=== PATIENT | female | born 1995 | race Caucasian/White ===

== ENCOUNTER 2016-11-07 08:23 | Emergency (ER) | payer BC ==
[~2016-11-07] VITALS: Ht 167.6 cm; Wt 63.5 kg
[~2016-11-07 08:23] MED LIST: TRAM50TA PO
[2016-11-07] MEDS ORDERED: MORPHINE SULFATE 2 MG/ML DISP.SYRIN. IV ONE ×2 (09:00→10:00)
--- NOTE | 2016-11-07 09:00 | PHYS DOC ---
Past History Past Medical History: No Pertinent History Past Surgical History: No Surgical History Smoking: Non-smoker Alcohol Use: None Drug Use: None Adult General Chief Complaint Chief Complaint: KNEE INJURY HPI HPI Patient is a 21-year-old female brought to the ED by ambulance after a knee injury. The patient was climbing on boxes at work and her knee twisted. She denies fall. She denies problems with this knee previously. EMS gave her IV morphine and brought her in a cardboard splint. Review of Systems Review of Systems Constitutional: Denies fever or chills [] Musculoskeletal: Denies any other injury Current Medications Current Medications Current Medications Medications (Trade) Dose Ordered Sig/Paige Start Time Stop Time Status Last Admin Dose Admin Morphine Sulfate (Morphine 2mg Syringe) 5 mg 1X ONCE 11/07/16 09:00 11/07/16 09:01 11/07/16 08:50 5 MG Allergies Allergies Allergies Coded Allergies Type Severity Reaction Last Updated Verified No Known Drug Allergies 12/03/14 No Physical Exam Physical Exam Constitutional: Well developed, well nourished, no acute distress, non-toxic appearance. Alert, mentating normally. HENT: Normocephalic, atraumatic, bilateral external ears normal, nose normal. [] Eyes: conjunctiva normal, no discharge. [] Neck: Normal range of motion, no stridor. [] Skin: Warm, dry, no erythema, no rash. [] Extremities: Left knee: The patella appears to be dislocated laterally. No effusion. No redness. Distal neurovascular intact with good pulse in left foot. Otherwise, No tenderness, no cyanosis, no clubbing, ROM intact, no edema. [] Neurologic: Alert and oriented X 3, normal motor function, normal sensory function, no focal deficits noted. [] Current Patient Data Vital Signs Vital Signs Date Time Temp Pulse Resp B/P (MAP) Pulse Ox O2 Delivery O2 Flow Rate FiO2 11/07/16 08:50 20 95 EKG EKG [] Radiology/Procedures Radiology/Procedures Two-view x-ray of the left knee read by the radiologist. Due to the patient's pain, the exam was limited. No definite finding. No fracture. Two-view post reduction x-ray of the left knee read by me. Patella appears to be in normal position. No bony abnormality seen. [] Procedure: Reduction of left patella dislocation under procedural sedation by me The reduction was initially attempted with IV pain medicine and IV Ativan for muscle relaxation. The patient was not able to tolerate that so we moved on to procedural sedation. Risks and benefits were explained, consent was signed. The patient was monitored, IV Versed was given, good result with good muscle relaxation and sedation and relaxation of the patient that she was conscious during the entire procedure and talking. The left knee was fully extended. The left hip was slightly flexed. The patella was manually removed in order to reduce to appropriate place. The procedure was smooth and nontraumatic. Patient tolerated the procedure well. Post procedure x-ray as above. Course & Med Decision Making Course & Med Decision Making Pertinent Labs and Imaging studies reviewed. (See chart for details) 21-year-old female who had a twisting injury to her left knee resulting in a lateral dislocation of the patella. No other injury. I initially gave her IV pain medication and a small dose of Ativan to relax her muscles. I hoped I could reduce her patellar dislocation with muscle relaxation, but the patient was not able to tolerate that, so we did do some minimal procedural sedation with IV Versed. The patient then was able to relax and tolerated the procedure well, uneventful reduction of the dislocation of the left patella. After she was recovered, knee immobilizer was placed and the patient was discharged with her boyfriend. See instructions for plan. [] Dragon Disclaimer Dragon Disclaimer This chart was dictated in whole or in part using Voice Recognition software in a busy, high-work load, and often noisy Emergency Department environment. It may contain unintended and wholly unrecognized errors or omissions. Departure Departure: Impression: Primary Impression: Dislocation of patella, left, closed Disposition: 01 HOME, SELF-CARE Condition: STABLE Referrals: PCP,NO (PCP) Patient Instructions: Patellar Dislocation, [id number] Additional Instructions: As we discussed, your kneecap (patella) is made to slide when you bend your knee , and in your case, it slid to the side. This is called a dislocation. Wear the knee immobilizer 24 hours a day until you see orthopedics. Call for orthopedics appointment for recheck in 5-7 days. You may remove it briefly to shower but keep your leg straight at all times. Wear the knee immobilizer on the outside of your clothing. Ibuprofen 800 mg every 8 hours for pain. If needed for more severe pain, hydrocodone as prescribed. Not while working or driving. This is an opiate. You may combine hydrocodone and ibuprofen. Scripts Hydrocodone Bit/Acetaminophen (NORCO 5-325 TABLET) 1 Each Tablet 1-2 TAB PO Q4-6HRS for knee pain, #12 TAB Prov: TYLER REYNOLDS MD 11/07/16 TYLER REYNOLDS MD Nov 07, 2016 09:00
--- NOTE | 2016-11-07 09:18 | RAD ---
Indication: Injury to the left knee. Time of exam 0910 hours. Limited views were obtained. No lateral view was obtained. No fracture is detected. No definite joint effusion is detected. Impression: No acute feature detected.
[2016-11-07] MEDS ORDERED: HYDR-971 PO (09:25)
[2016-11-07] MEDS ORDERED: MORPHINE SULFATE 10 MG/ML SYRINGE. ONE (09:44)
[2016-11-07] MEDS ORDERED: LORazepam 2 MG/ML VIAL IV ONE (10:00)
[2016-11-07] MEDS ORDERED: MIDAZOLAM HCL 5 MG/5 ML VIAL IV ONE (10:00)
[2016-11-07] MEDS ORDERED: IV NORMAL SALINE 1,000ML 1,000 ML ONE (10:10)
[2016-11-07] MEDS ORDERED: FLUMAZENIL 0.5 MG/5 ML VIAL. IV ONE (10:15)
[2016-11-07 10:53] VITALS: BP 115/70
--- NOTE | 2016-11-07 11:04 | RAD ---
Indication: Postreduction x-rays. Time of exam 10:27 AM 2 views of the left knee were obtained. The alignment appears normal. The distal femur and proximal tibia appear intact. Proximal fibula appears intact. No joint effusion is seen. No fractures identified. Impression: No acute abnormality is detected.
[2016-11-07] MEDS ORDERED: IV NORMAL SALINE 1,000ML 1,000 ML IV ONE (12:30)
== END 2016-11-07 11:45 | disposition home or self-care (01) ==
LOC: ER 08:23
DX: S83.005A Unspecified dislocation of left patella, initial encounter (principal); X50.9XXA Other and unspecified overexertion or strenuous movements or postures, initial encounter; Y93.89 Activity, other specified; Y99.8 Other external cause status; Y92.89 Other specified places as the place of occurrence of the external cause
CPT/HCPCS: 27560; 73560; 96374; 96376; 99285; J2060; J2270; 96375; 99152

== ENCOUNTER 2016-11-13 21:16 | Emergency (ER) | payer OTHER ==
[~2016-11-13] VITALS: Ht 167.6 cm; Wt 63.5 kg
[~2016-11-13 21:16] MED LIST changes: +HYDR-971 PO
[2016-11-13 21:27] VITALS: BP 115/70
--- NOTE | 2016-11-13 21:41 | PHYS DOC ---
General Chief Complaint: KNEE INJURY Stated Complaint: LEFT LEG SWELLING Time Seen by MD: 21:17 Source: patient, old records Exam Limitations: no limitations Problems: History of Present Illness Initial Comments Patient is a 21-year-old female who comes to the ED complaining of left leg pain. Patient was seen here November 07 (1 week ago) diagnosed with a dislocated left patella it was reduced under conscious sedation. An knee immobilizer was applied and the patient was advised to follow-up with orthopedics. She was to have followed up with orthopedics within 5 days, she says that her employer is not processing paperwork fast enough which is causing her to be delayed in obtaining orthopedics referral. Patient says she ran out of hydrocodone earlier today, she says she still has persistent left knee pain which requires hydrocodone. She has tightness in the musculature above and below the knee and her left lower leg and ankle are becoming swollen. She denies numbness tingling weakness and says she's been wearing the immobilizer at all times except when bathing. She is requesting something stronger than the hydrocodone she says this does not keep her pain- free. She says she does not have a primary care physician Onset: last week Severity: moderate Pain/Injury Location: left knee Method of Injury: other Modifying Factors: improves with immobilization, worse with jarring, worse with movement, improves with rest Allergies: Coded Allergies: No Known Drug Allergies (Unverified , 12/03/14) Past Medical History Medical History: no pertinent history Surgical History: noncontributory Social History Smoker: non-smoker Alcohol: none Drugs: none Review of Systems Constitutional: denies chills, denies fever Respiratory: denies cough, denies shortness of breath Cardiovascular: denies chest pain, denies palpitations, denies syncope Gastrointestinal: denies abdominal pain, denies diarrhea, denies nausea, denies vomiting Musculoskeletal: see HPI Skin: see HPI Psychiatric/Neurological: see HPI, denies headache, denies numbness, denies paresthesia Physical Exam General Appearance: WD/WN, no apparent distress HEENT: normal ENT inspection Neck: non-tender, supple Cardiovascular/Respiratory: normal peripheral pulses, normal breath sounds, no respiratory distress Back: no CVA tenderness, no vertebral tenderness Knees: right knee non-tender, right knee normal inspection, right knee normal range of motion, right knee no evidence of injury, left knee other (immobilizer and place mild effusion, mild dependent edema in the left lower extremity distal to the knee. No bony tenderness ligaments and tendons appear to be intact ) Neurologic/Tendon: normal sensation, normal motor functions, normal tendon functions, responds to pain, no evidence tendon injury Psychiatric: alert, oriented x 3 Skin: normal color, warm/dry Orders, Labs, Meds The patient was advised that she should not be requiring narcotic pain medications at this time. She was advised that she has a follow-up with orthopedics, she was educated that it is a disservice to her to continue to fill narcotic pain medications from the emergency department for this condition without appropriate workup. No further narcotic pain medications for this condition after today's visit, as she does not have a primary care doctor she was notified that there are local doctors with walk-in appointments daily. She was encouraged to follow up with one of these physicians if she is unable to get in with orthopedics and feels she needs to be seen in the interim. Her questions were answered she expressed agreement and understanding of the treatment plan. Departure Time of Disposition: 21:38 Disposition: 01 HOME, SELF-CARE Diagnosis: left patellar dislocation, pain control Condition: GOOD Patient Instructions: MAKI - Routine Care for Injuries, [id number] Additional Instructions: MAKI, see handout. Wear immobilizer until orthopedics follow up. OTC ibuprofen for baseline pain control. Rx: norco 5mg #10, take for severe pain. As discussed, you must follow up with orthopedics. If you feel more pain medications etc are needed and Work Compensation has not yet scheduled your orthopedics follow up, follow up with a local PCP. ED staff can direct you to those providers who have walk in appointments available daily. Return to ED as needed. ALWSON MENA DO Nov 13, 2016 21:41
== END 2016-11-13 21:48 | disposition home or self-care (01) ==
LOC: ER 21:16
DX: O9A.212 Injury, poisoning and certain other consequences of external causes complicating pregnancy, second trimester (principal); S83.004A Unspecified dislocation of right patella, initial encounter; Z3A.27 27 weeks gestation of pregnancy; X58.XXXA Exposure to other specified factors, initial encounter; Y93.89 Activity, other specified; Y99.8 Other external cause status; Y92.89 Other specified places as the place of occurrence of the external cause
CPT/HCPCS: 99283

== ENCOUNTER 2017-03-02 12:00 | Emergency (ER) | payer SELFPAY ==
[~2017-03-02] VITALS: Ht 167.6 cm; Wt 59.9 kg
[2017-03-02 12:29] VITALS: BP 93/56
--- NOTE | 2017-03-02 13:06 | PHYS DOC ---
Past History Past Medical History: Anxiety Past Surgical History: No Surgical History Smoking: Non-smoker Alcohol Use: None Drug Use: None Adult General Chief Complaint Chief Complaint: CHEST PAIN HPI HPI Patient is a 21 year old F who presents with sharp intermittent left chest pain it's worse with palpation, movement and deep breaths. She denies shortness of breath cough or other congestion. Her only other symptoms include fatigue and occasional dizziness. She states that she has had frequent anxiety attacks. She denies injury. She denies any other exacerbating or alleviating factors. She denies any other associated symptoms. Review of Systems Review of Systems Constitutional: Denies fever or chills [] Eyes: Denies change in visual acuity, redness, or eye pain [] HENT: Denies nasal congestion or sore throat [] Respiratory: Denies cough or shortness of breath [] Cardiovascular: No additional information not addressed in HPI [] GI: Denies abdominal pain, nausea, vomiting, bloody stools or diarrhea [] : Denies dysuria or hematuria [] Musculoskeletal: Denies back pain or joint pain [] Integument: Denies rash or skin lesions [] Neurologic: Denies headache, focal weakness or sensory changes [] Endocrine: Denies polyuria or polydipsia [] Family History Family History Noncontributory Current Medications Current Medications Medications reviewed Allergies Allergies Allergies Coded Allergies Type Severity Reaction Last Updated Verified No Known Drug Allergies 12/03/14 No Physical Exam Physical Exam Constitutional: Well developed, well nourished, no acute distress, non-toxic appearance. [] HENT: Normocephalic, atraumatic, bilateral external ears normal, oropharynx moist, no oral exudates, nose normal. [] Eyes: PERRLA, EOMI, conjunctiva normal, no discharge. [] Neck: Normal range of motion, no tenderness, supple, no stridor. [] Cardiovascular:Heart rate regular rhythm, no murmur [] Lungs & Thorax: Bilateral breath sounds clear to auscultation [] pain reproducible with palpation over the sternum Abdomen: Bowel sounds normal, soft, no tenderness, no masses, no pulsatile masses. [] Skin: Warm, dry, no erythema, no rash. [] Back: No tenderness, no CVA tenderness. [] Extremities: No tenderness, no cyanosis, no clubbing, ROM intact, no edema. [] Neurologic: Alert and oriented X 3, normal motor function, normal sensory function, no focal deficits noted. [] Psychologic: Affect normal, judgement normal, mood normal. [] Current Patient Data Vital Signs Vital Signs Date Time Temp Pulse Resp B/P (MAP) Pulse Ox O2 Delivery O2 Flow Rate FiO2 03/02/17 12:29 97.8 71 93/56 (68) 100 03/02/17 12:00 16 Room Air EKG EKG Normal sinus rhythm, no ectopy, normal QRS complex, no ST segment changes Radiology/Procedures Radiology/Procedures [] Course & Med Decision Making Course & Med Decision Making Pertinent Labs and Imaging studies reviewed. (See chart for details) Labs and imaging were declined Dragon Disclaimer Dragon Disclaimer This chart was dictated in whole or in part using Voice Recognition software in a busy, high-work load, and often noisy Emergency Department environment. It may contain unintended and wholly unrecognized errors or omissions. Departure Departure: Impression: Primary Impression: Pleuritis Disposition: 01 HOME, SELF-CARE Condition: STABLE Referrals: PCPVALENTINA (PCP) Patient Instructions: Pleurisy Additional Instructions: Annia was seen in the emergency department for chest pain. No emergency medical condition was found on history or physical exam. She did have a normal EKG. Her symptoms most consistent with pleurisy or musculoskeletal pain. She was advised to use Tylenol or ibuprofen for pain. She also could consider using a lidocaine patch. She was advised follow-up with her primary care doctor in the next 3-5 days for further management. LIVIA BAUTISTA MD Mar 02, 2017 13:06
[2017-03-02] MEDS ORDERED: KETOROLAC 30 MG/ML VIAL. IM ONE (13:45)
--- NOTE | 2017-03-03 03:28 | EKG ---
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
== END 2017-03-02 14:10 | disposition home or self-care (01) ==
LOC: ER 12:00
DX: R09.1 Pleurisy (principal); F41.9 Anxiety disorder, unspecified
CPT/HCPCS: 93005; 96372; 99283; J1885

== ENCOUNTER 2019-02-06 15:15 | Emergency (ER) | payer MEDICAID, OTHER ==
[~2019-02-06] VITALS: Ht 165.1 cm; Wt 63.0 kg
[~2019-02-06 15:15] MED LIST changes: +HYDR-3165 PO; -HYDR-971 PO
[2019-02-06 15:27] VITALS: BP 111/73
[2019-02-06] MEDS ORDERED: IV NORMAL SALINE 1,000ML 1,000 ML IV SCH (15:45)
--- NOTE | 2019-02-06 15:51 | RAD ---
Single view chest dated 02/06/2019: No comparison available. Clinical Indication: Chest pain. Findings: Single upright portable exam of the chest was performed. Heart size and mediastinal contours are within normal limits given technique. The lungs are clear without evidence of focal consolidation. Vascular interstitium is within normal limits. Impression:: Negative portable chest. Electronically signed by: Tremaine Oneill MD (02/06/2019 3:49 PM) [facility]
--- NOTE | 2019-02-06 15:56 | PHYS DOC ---
Past History Past Medical History: Other Additional Past Medical Histor: Muscle spasms Past Surgical History: No Surgical History Smoking: Non-smoker Alcohol Use: Occasionally Drug Use: None Adult General Chief Complaint Chief Complaint: CHEST PAIN HPI HPI Patient is a 23-year-old female who presents with complaint of midsternal chest pain that started this morning at about 8:30. She rates pain at a 6 out of 10. Patient describes pain as sharp and stabbing in nature. She states the pain is worsened with deep breathing and with certain movements as well as with coughing. She indicates that she does get some sputum up with cough but it is clear in color. She denies any fever.[] Review of Systems Review of Systems Constitutional: Denies fever or chills [] Respiratory: Positive cough without shortness of breath [] Cardiovascular: No additional information not addressed in HPI [] GI: Denies abdominal pain, nausea, vomiting or diarrhea [] Integument: Denies rash or skin lesions [] Neurologic: Denies headache, focal weakness or sensory changes [] All other systems were reviewed and found to be within normal limits, except as documented in this note. Current Medications Current Medications Current Medications Medications (Trade) Dose Ordered Sig/Paige Start Time Stop Time Status Last Admin Dose Admin Sodium Chloride 1,000 ml @ 1,000 mls/hr Q1H 02/06/19 15:45 02/06/19 16:44 02/06/19 15:45 1,000 MLS/HR Allergies Allergies Allergies Coded Allergies Type Severity Reaction Last Updated Verified No Known Drug Allergies 12/03/14 No Physical Exam Physical Exam Constitutional: Well developed, well nourished, no acute distress, non-toxic appearance. [] HENT: Normocephalic, atraumatic, bilateral external ears normal, oropharynx moist, no oral exudates, nose normal. [] Eyes: PERRLA, EOMI, conjunctiva normal, no discharge. [] Neck: Normal range of motion, no tenderness, supple. [] Cardiovascular:Heart rate regular rhythm, no murmur [] Lungs & Thorax: Bilateral breath sounds clear to auscultation [] Abdomen: Bowel sounds normal, soft, no tenderness. [] Skin: Warm, dry, no erythema, no rash. [] Extremities: No tenderness, no cyanosis, no clubbing, ROM intact, no edema. [] Neurologic: Alert and oriented X 3, no focal deficits noted. [] Current Patient Data Vital Signs Vital Signs Date Time Temp Pulse Resp B/P (MAP) Pulse Ox O2 Delivery O2 Flow Rate FiO2 02/06/19 15:27 98.3 83 22 95 Room Air Lab Results Laboratory Tests Test 02/06/19 15:43 POC Urine HCG, Qualitative hcg negative (Negative) EKG EKG EKG demonstrates normal sinus rhythm with rate of 74.[] Radiology/Procedures Radiology/Procedures [] Impressions: PROCEDURE: PORTABLE CHEST 1V Single view chest dated 02/06/2019: No comparison available. Clinical Indication: Chest pain. Findings: Single upright portable exam of the chest was performed. Heart size and mediastinal contours are within normal limits given technique. The lungs are clear without evidence of focal consolidation. Vascular interstitium is within normal limits. Impression:: Negative portable chest. Electronically signed by: Tremaine Oneill MD (02/06/2019 3:49 PM) [facility] Course & Med Decision Making Course & Med Decision Making Pertinent Labs and Imaging studies reviewed. (See chart for details) [] Dragon Disclaimer Dragon Disclaimer This electronic medical record was generated, in whole or in part, using a voice recognition dictation system. Departure Departure: Impression: Primary Impression: Chest wall pain Disposition: 01 HOME, SELF-CARE Condition: STABLE Referrals: PCP,NO (PCP) Patient Instructions: Costochondritis Scripts Diclofenac Sodium (DICLOFENAC SODIUM) 50 Mg Tablet.dr 1 TAB PO BID PRN for PAIN, #20 TAB Prov: DELMAR DUNBAR Jr. DO 02/06/19 Tramadol Hcl (TRAMADOL HCL) 50 Mg Tablet 50 MG PO PRN Q6HRS PRN for PAIN, #14 TAB Prov: DELMAR DUNBAR Jr. DO 02/06/19 DELMAR DUNBAR Jr. DO Feb 06, 2019 15:56
[2019-02-06 16:04] LABS: ALBUMIN 3.8 g/dL (3.4-5.0); ALBUMIN/GLOBULIN RATIO 1.3 (1.0-1.7); CALCIUM 9.1 mg/dL (8.5-10.1); CREATININE 0.9 mg/dL (0.6-1.0); GFR 78.3; MAGNESIUM 1.8 mg/dL (1.8-2.4); POTASSIUM 3.5 mmol/L (3.5-5.1); TOTAL BILIRUBIN 0.6 mg/dL (0.2-1.0); TOTAL PROTEIN 6.7 g/dL (6.4-8.2)
[2019-02-06 16:13] LABS: BASO % 1 % (0-3); EOS # 0.1 x10^3/uL (0.0-0.7); EOS % 2 % (0-3); HEMATOCRIT 40.8 % (36.0-47.0); LYMPH % 28 % (24-48); MEAN CORPUSCULAR HEMOGLOBIN 27 pg (25-35); MEAN CORPUSCULAR HGB CONC 34 g/dL (31-37); MEAN CORPUSCULAR VOLUME 79 fL (79-100); MONO # 0.3 x10^3/uL (0.0-1.1); MONO % 5 % (0-9); NEUT # 4.6 x10^3uL (1.8-7.7); NEUT % 65 % (31-73); PLATELET COUNT 218 x10^3/uL (140-400); RED BLOOD COUNT 5.13 x10^6/uL (3.50-5.40); RED CELL DISTRIBUTION WIDTH 18.9 % (11.5-14.5)
[2019-02-06 16:25] LABS: BACTERIA,URINE FEW /HPF (0-FEW); BILIRUBIN,URINE NEG (NEG); CLARITY,URINE CLOUDY; COLOR,URINE YELLOW; GLUCOSE,URINE NEG (NEG); NITRITE,URINE NEG (NEG); SQUAMOUS EPITHELIAL CELL,UR FEW /LPF; UROBILINOGEN,URINE 1 mg/dL (0.2 mg/dL)
[2019-02-06] MEDS ORDERED: KETOROLAC 30 MG/ML VIAL. IV ONE (16:30)
[2019-02-06] MEDS ORDERED: DICL50TA4 PO (16:59)
[2019-02-06] MEDS ORDERED: TRAM50TA PO (16:59)
--- NOTE | 2019-02-07 07:28 | EKG ---
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
== END 2019-02-06 17:10 | disposition home or self-care (01) ==
LOC: ER 15:15
DX: R07.2 Precordial pain (principal)
CPT/HCPCS: 36415; 71045; 80053; 81001; 81025; 83735; 84484; 85025; 85379; 87086; 93005; 96374; 99285; J1885; J7030

== ENCOUNTER 2019-03-18 22:01 | Emergency (ER) | payer MEDICAID ==
[~2019-03-18] VITALS: Ht 167.6 cm; Wt 64.4 kg
[~2019-03-18 22:01] MED LIST changes: +DICL50TA4 PO
[2019-03-18 22:12] VITALS: BP 110/73
[2019-03-18] MEDS ORDERED: IBUPROFEN 600 MG TABLET. PO ONE (22:30)
--- NOTE | 2019-03-18 22:33 | PHYS DOC ---
Past History Past Medical History: Other Additional Past Medical Histor: Muscle spasms Past Surgical History: No Surgical History Smoking: Non-smoker Alcohol Use: Occasionally Drug Use: None Adult General Chief Complaint Chief Complaint: FINGER INJURY HPI HPI 23-year-old female presents with report of injury to nail of left ring finger which occurred just prior to arrival. Patient reports she caught the nail on w indow at her home. Reports nail ripped backwards causing some bleeding and throbbing to nail bed. Reports his had prior injury in the past. Patient denies complete loss of nail. Denies crush injury. Denies . Review of Systems Review of Systems Constitutional: Denies fever or chills Musculoskeletal: Reports left ring finger nailbed avulsion Integument: Denies rash or skin lesions Neurologic: Denies headache, focal weakness or sensory changes Complete systems were reviewed and found to be within normal limits, except as documented in this note. Allergies Allergies Allergies Coded Allergies Type Severity Reaction Last Updated Verified No Known Drug Allergies 12/03/14 No Physical Exam Physical Exam Constitutional: Well developed, well nourished, no acute distress, non-toxic appearance HENT: Normocephalic, atraumatic, oropharynx moist Eyes: Conjunctiva normal, no discharge Neck: Normal range of motion, no tenderness, supple Lungs & Thorax: No respiratory distress Skin: Warm, dry, no erythema, no rash Extremities: ROM intact, finger nail bed tenderness to left 4th finger, no active bleeding Neurologic: Alert and oriented X 3, no focal deficits noted Psychologic: Affect normal, judgement normal Current Patient Data Vital Signs Vital Signs Date Time Temp Pulse Resp B/P (MAP) Pulse Ox O2 Delivery O2 Flow Rate FiO2 03/18/19 22:12 98.4 89 18 97 Room Air EKG EKG [] Radiology/Procedures Radiology/Procedures [] Course & Med Decision Making Course & Med Decision Making Patient presents with history of present illness and physical exam consistent for partial avulsion of fingernail. Fingernail appears to be chronically in place. Pain addressed. Wound cleaned and dressed. Finger splint provided for protection. Patient stable for discharge with outpatient follow-up with PCP. Discussed findings and plan with patient, who acknowledges understanding and agreement. Dragon Disclaimer Dragon Disclaimer This electronic medical record was generated, in whole or in part, using a voice recognition dictation system. Splinting Splinting : Location: Left ring finger Pre-Made Type: metal (finger splint) Pre-Proc Neuro Vasc Exam: normal, abnormal Post-Proc Neuro Vasc Exam: unchanged from pre-exam Departure Departure: Impression: Primary Impression: Avulsed fingernail Disposition: 01 HOME, SELF-CARE Condition: STABLE Referrals: PCP,NO (PCP) Patient Instructions: Nail Avulsion Injury Additional Instructions: Do not soak your wound. You may shower. Clean wound daily with soap and water. Change dressing 2 times daily. Use over the counter antibiotic ointment with each dressing change. Wear finger splint to protect nail during normal activity. Use over the counter Tylenol and Ibuprofen for pain or discomfort. Problem Qualifiers Primary Impression: Avulsed fingernail Encounter type: initial encounter Qualified Codes: S61.309A - Unspecified open wound of unspecified finger with damage to nail, initial encounter ANJALI CAROLINA DO Mar 18, 2019 22:33
[2019-03-18] MEDS ORDERED: NEOMY/BACITR/POLYMYXIN OINT PACKET. TP ONE (23:03)
== END 2019-03-18 23:15 | disposition home or self-care (01) ==
LOC: ER 22:01
DX: S61.305A Unspecified open wound of left ring finger with damage to nail, initial encounter (principal); W23.0XXA Caught, crushed, jammed, or pinched between moving objects, initial encounter; Y93.89 Activity, other specified; Y92.098 Other place in other non-institutional residence as the place of occurrence of the external cause; Y99.8 Other external cause status
CPT/HCPCS: 29130; 99283

== ENCOUNTER 2020-11-15 09:31 | Emergency (ER) | payer MEDICAID ==
[~2020-11-15] VITALS: Ht 167.6 cm; Wt 73.6 kg
[2020-11-15 09:31] VITALS: BP 106/63
[2020-11-15] MEDS ORDERED: IV NORMAL SALINE 1,000ML 1,000 ML IV ONE (09:45)
--- NOTE | 2020-11-15 09:56 | PHYS DOC ---
Past History Past Medical History: Other Additional Past Medical Histor: Muscle spasms Past Surgical History: No Surgical History Smoking: Non-smoker Alcohol Use: Occasionally Drug Use: None General Adult EDM: Chief Complaint: CHEST PAIN HPI: HPI: 25-year-old female presents with chest pain. She describes it as a 7 out of 10 stabbing pain that radiates through to her back and left shoulder. She has been having problems with this off and on for the last 1 week. Patient cannot tell if her symptoms are anxiety related or something else. She does have anxiety at baseline for which she takes hydroxyzine. She has been taking this without much relief. It works for a little while but not very long. She denies shortness of breath. She has had swelling of her feet lately but improves when she puts her feet up. The patient states that she has had fluid around her heart and/or lungs in the past and is some kind of inherited disorder. She is not sure what it is called. She is not currently on any medication for this. She denies fever or chills. She has been under emotional stress lately because her ex- has her kids. Review of Systems: Review of Systems: Constitutional: Denies fever or chills Eyes: Denies change in visual acuity HENT: Denies nasal congestion or sore throat Respiratory: Denies cough or shortness of breath Cardiovascular: Chest pain GI: Denies abdominal pain, nausea, vomiting, bloody stools or diarrhea : Denies dysuria Musculoskeletal: Denies back pain or joint pain Integument: Denies rash Neurologic: Denies headache, focal weakness or sensory changes Endocrine: Denies polyuria or polydipsia Lymphatic: Denies swollen glands Psychiatric: Anxiety Current Medications: Current Meds: Current Medications Medications (Trade) Dose Ordered Sig/Paige Start Time Stop Time Status Last Admin Dose Admin Sodium Chloride 1,000 ml @ 1,000 mls/hr 1X ONCE 11/15/20 09:45 11/15/20 10:44 UNV Allergies: Allergies: Allergies Coded Allergies Type Severity Reaction Last Updated Verified No Known Drug Allergies 12/03/14 No Physical Exam: PE: Constitutional: Well developed, well nourished, no acute distress, non-toxic appearance. [] HENT: Normocephalic, atraumatic, bilateral external ears normal, oropharynx moist, no oral exudates, nose normal. [] Eyes: PERRLA, EOMI, conjunctiva normal, no discharge. [] Neck: Normal range of motion, no tenderness, supple, no stridor. [] Cardiovascular: Heart rate 70, regular rhythm, no murmur [] Lungs & Thorax: Bilateral breath sounds clear to auscultation [] Abdomen: Bowel sounds normal, soft, no tenderness, no masses, no pulsatile masses. [] Skin: Warm, dry, no erythema, no rash. [] Back: No tenderness, no CVA tenderness. [] Extremities: No tenderness, no cyanosis, no clubbing, ROM intact, no edema. [] Neurologic: Alert and oriented X 3, normal motor function, normal sensory functi on, no focal deficits noted. [] Psychologic: Affect normal, judgement normal, mood anxious. [] EKG: EKG: Sinus rhythm, rate 70, normal axis, no ST elevations or depressions. [] Radiology/Procedures: Radiology/Procedures: [] Impressions: EXAMINATION: XR CHEST 1V CLINICAL HISTORY: Chest pain EXAM DATE/TIME: 11/15/2020 9:39 AM COMPARISON: None FINDINGS: Lines, Tubes, and Devices: None. Cardiomediastinal Silhouette: Within normal limits. Lungs and Pleura: No evidence of focal airspace consolidation or pleural effusion. Pulmonary vasculature unremarkable. Bones and Soft Tissues: No acute osseous abnormality. IMPRESSION: No evidence of acute cardiopulmonary abnormality or significant interval change. Electronically signed by: Alton Lange DO (11/15/2020 10:07 AM) [facility] DICTATED AND SIGNED BY: ALTON LANGE DO DATE: 11/15/20 1006 CC: GRISEL CHEN DO; PCP,NO ~MTH0 0 Heart Score: C/O Chest Pain: Yes HEART Score for Chest Pain: HEART Score for Chest Pain Response (Comments) Value History Slighlty/Non-Suspicious 0 ECG Nonspecific Repolarizatio 1 Age < 45 0 Risk Factors No Risk Factors 0 Troponin < Normal Limit 0 Total 1 Risk Factors: Risk Factors: DM, Current or recent (<one month) smoker, HTN, HLP, family history of CAD, obesity. Risk Scores: Score 0 - 3: 2.5% MACE over next 6 weeks - Discharge Home Score 4 - 6: 20.3% MACE over next 6 weeks - Admit for Clinical Observation Score 7 - 10: 72.7% MACE over next 6 weeks - Early Invasive Strategies Course & Med Decision Making: Course & Med Decision Making Pertinent Labs and Imaging studies reviewed. (See chart for details) The patient's EKG is unremarkable. Her chest x-ray is unremarkable. Labs are unremarkable. Her troponin is negative. I will give her 1 mg of Ativan p.o. The patient's urinalysis shows white cells and bacteria. She is positive for trichomonas. I will treat her with Flagyl for 7 days. She is also positive for marijuana. I suspect these combination of issues are why she is feeling strange. It does not appear to be cardiopulmonary in nature. She is stable for discharge at this time. [] Cathy Disclaimer: Cathy Disclaimer: This electronic medical record was generated, in whole or in part, using a voice recognition dictation system. Departure Departure: Impression: Primary Impression: Trichomonas vaginalis (TV) infection Additional Impression: Chest pain Qualified Codes: R07.9 - Chest pain, unspecified Disposition: HOME / SELF CARE / HOMELESS Condition: STABLE Referrals: PCP,NO (PCP) Patient Instructions: Trichomoniasis Scripts Metronidazole (FLAGYL) 500 Mg Tablet 1 TAB PO BID for STD, #14 TAB Prov: GRISEL CHEN DO 11/15/20 GRISEL CHEN DO Nov 15, 2020 09:56
[2020-11-15 10:09] LABS: BASO % 1 % (0-3); EOS # 0.3 x10^3/uL (0.0-0.7); EOS % 4 % (0-3); HEMATOCRIT 44.6 % (36.0-47.0); HEMOGLOBIN 15.3 g/dL (12.0-15.5); LYMPH # 2.4 x10^3/uL (1.0-4.8); LYMPH % 35 % (24-48); MEAN CORPUSCULAR HEMOGLOBIN 30 pg (25-35); MEAN CORPUSCULAR HGB CONC 34 g/dL (31-37); MEAN CORPUSCULAR VOLUME 89 fL (79-100); MONO # 0.4 x10^3/uL (0.0-1.1); MONO % 6 % (0-9); NEUT # 3.9 x10^3uL (1.8-7.7); NEUT % 55 % (31-73); PLATELET COUNT 202 x10^3/uL (140-400); RED BLOOD COUNT 5.04 x10^6/uL (3.50-5.40); RED CELL DISTRIBUTION WIDTH 13.1 % (11.5-14.5)
--- NOTE | 2020-11-15 10:10 | RAD ---
EXAMINATION: XR CHEST 1V CLINICAL HISTORY: Chest pain EXAM DATE/TIME: 11/15/2020 9:39 AM COMPARISON: None FINDINGS: Lines, Tubes, and Devices: None. Cardiomediastinal Silhouette: Within normal limits. Lungs and Pleura: No evidence of focal airspace consolidation or pleural effusion. Pulmonary vasculat ure unremarkable. Bones and Soft Tissues: No acute osseous abnormality. IMPRESSION: No evidence of acute cardiopulmonary abnormality or significant interval change. Electronically signed by: Alton Hastings DO (11/15/2020 10:07 AM) [facility]
[2020-11-15 10:20] LABS: CALCIUM 8.7 mg/dL (8.5-10.1); GFR 68.1; POTASSIUM 3.7 mmol/L (3.5-5.1)
[2020-11-15 10:22] LABS: ALBUMIN/GLOBULIN RATIO 1.5 (1.0-1.7); TOTAL BILIRUBIN 0.5 mg/dL (0.2-1.0); TOTAL PROTEIN 6.6 g/dL (6.4-8.2)
[2020-11-15] MEDS ORDERED: LORazepam 1 MG TABLET PO ONE (10:45)
[2020-11-15 11:21] LABS: BILIRUBIN,URINE NEG (NEG); CLARITY,URINE HAZY; COLOR,URINE YELLOW; GLUCOSE,URINE NEG (NEG); NITRITE,URINE NEG (NEG); UROBILINOGEN,URINE 0.2 mg/dL (0.2 mg/dL)
[2020-11-15 11:27] LABS: BARBITURATES NEG (NEG); BENZODIAZEPINES NEG (NEG); CANNABINOIDS POS (NEG); COCAINE NEG (NEG); METHADONE NEG (NEG); OPIATES NEG (NEG); PHENCYCLIDINE NEG (NEG)
[2020-11-15 11:32] LABS: BACTERIA,URINE FEW /HPF (0-FEW); SQUAMOUS EPITHELIAL CELL,UR MANY /LPF
[2020-11-15 11:33] LABS: TRICHOMONAS,URINE PRESENT
[2020-11-15 11:36] LABS: AMPHETAMINE/METHAMPHETAMINE NEG (NEG)
[2020-11-15] MEDS ORDERED: METR500T PO (11:41)
--- NOTE | 2020-11-16 06:25 | EKG ---
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
== END 2020-11-15 11:55 | disposition home or self-care (01) ==
LOC: ER 09:31
DX: A59.01 Trichomonal vulvovaginitis (principal); R07.9 Chest pain, unspecified; F41.9 Anxiety disorder, unspecified
CPT/HCPCS: 36415; 71045; 80053; 80307; 81001; 84484; 85025; 87086; 93005; 96360; 99285; J7030

== ENCOUNTER → 2020-12-21 | Outpatient (CLI) | payer OTHER ==
[~2020-12-21] MED LIST changes: +METR500T PO
== END ==
LOC: LAB 15:09
PROVIDERS: ATTEND Internal Medicine Cardiovascular Disease
DX: U07.1 COVID-19 (principal); R11.2 Nausea with vomiting, unspecified; R09.89 Other specified symptoms and signs involving the circulatory and respiratory systems; R09.81 Nasal congestion; R51.9 Headache, unspecified; M79.10 Myalgia, unspecified site; R05 Cough
CPT/HCPCS: U0003

== ENCOUNTER 2021-02-16 11:19 | Emergency (ER) | payer MEDICAID, OTHER ==
[~2021-02-16] VITALS: Ht 167.6 cm; Wt 73.6 kg
[2021-02-16 11:25] VITALS: BP 101/61
--- NOTE | 2021-02-16 11:37 | PHYS DOC ---
Past History Past Medical History: Other Additional Past Medical Histor: Muscle spasms (DONELL GASPAR APRN) Past Surgical History: No Surgical History (DONELL GASPAR APRN) Smoking: Non-smoker Alcohol Use: Occasionally Drug Use: None (DONELL GASPAR APRN) General Adult HPI: HPI: Patient is a 25-year-old female that presents today with right ankle foot pain. Patient states 2 days ago she tripped and fell injuring her right foot. Patient states over the last 2 days she has had more increased difficulty walking and the swelling keeps getting worse. She states that she has been icing and elevating her foot along with taking [id number] ibuprofen for pain relief. (DONELL GASPAR APRN) Review of Systems: Review of Systems: Constitutional: Denies fever or chills Eyes: Denies change in visual acuity HENT: Denies nasal congestion or sore throat Respiratory: Denies cough or shortness of breath Cardiovascular: Denies chest pain or edema GI: Denies abdominal pain, nausea, vomiting, bloody stools or diarrhea : Denies dysuria Musculoskeletal: right foot and ankle pain Integument: Denies rash Neurologic: Denies headache, focal weakness or sensory changes Endocrine: Denies polyuria or polydipsia Lymphatic: Denies swollen glands Psychiatric: Denies depression or anxiety (DONELL GASPAR APRN) Allergies: Allergies: Allergies Coded Allergies Type Severity Reaction Last Updated Verified No Known Drug Allergies 12/03/14 No (DONELL GASPAR APRN) Physical Exam: PE: Constitutional: Well developed, well nourished, no acute distress, non-toxic appearance. [] HENT: Normocephalic, atraumatic, bilateral external ears normal, oropharynx moist, no oral exudates, nose normal. [] Eyes: PERRLA, EOMI, conjunctiva normal, no discharge. [] Neck: Normal range of motion, no tenderness, supple, no stridor. [] Cardiovascular:Heart rate regular rhythm, no murmur [] Lungs & Thorax: Bilateral breath sounds clear to auscultation [] Abdomen: Bowel sounds normal, soft, no tenderness, no masses, no pulsatile masses. [] Skin: abrasion noted to right great toe[] Back: No tenderness, no CVA tenderness. [] Extremities: right foot and ankle tender to palpation, swelling noted medially on foot, decrease ROM noted with active ROM. DP and PT 2+ pulses noted. Neurologic: Alert and oriented X 3, normal motor function, normal sensory function, no focal deficits noted. [] Psychologic: Affect normal, judgement normal, mood normal. [] (DONELL GASPAR APRN) EKG: EKG: [] (DONELL GASPAR APRN) Radiology/Procedures: Radiology/Procedures: PROCEDURE: FOOT RIGHT 3V EXAM: 1. RIGHT ANKLE 3 VIEWS. 2. RIGHT FOOT 3 VIEWS. HISTORY: Fall, pain/swelling. COMPARISON: None. FINDINGS: No fractures are identified about the ankle. The alignment of the mortise is maintained. Joint spaces are maintained. No fractures are identified in the foot. Alignment is normal. Joint spaces are maintained. IMPRESSION: 1. No fracture. Electronically signed by: Elva Lux MD (02/16/2021 12:34 PM) [id number] (DONELL GASPAR APRN) Heart Score: C/O Chest Pain: N/A Risk Factors: Risk Factors: DM, Current or recent (<one month) smoker, HTN, HLP, family history of CAD, obesity. Risk Scores: Score 0 - 3: 2.5% MACE over next 6 weeks - Discharge Home Score 4 - 6: 20.3% MACE over next 6 weeks - Admit for Clinical Observation Score 7 - 10: 72.7% MACE over next 6 weeks - Early Invasive Strategies (DONELL GASPAR APRN) Course & Med Decision Making: Course & Med Decision Making Pertinent Labs and Imaging studies reviewed. (See chart for details) No fracture noted in ankle or foot. Patient given postop shoe with instructions to follow-up with primary care physician in 3 to 2 to 3 days if foot is not feeling better. Patient is instructed to take Tylenol and/or ibuprofen as needed for pain. Ice 20 minutes on 3-4 times daily. Off work until February 17, 2021. (DONELL GASPAR APRN) Dragon Disclaimer: Dragon Disclaimer: This electronic medical record was generated, in whole or in part, using a voice recognition dictation system. (DONELL GASPAR APRN) Attending Co-Sign The patient was seen and interviewed as well as examined at the bedside. The chart was reviewed. The case was discussed. Agree with the plan of care. (GRISEL CHEN DO) Departure Departure: Impression: Primary Impression: Right foot strain Qualified Codes: S96.911A - Strain of unspecified muscle and tendon at ankle and foot level, right foot, initial encounter Disposition: HOME / SELF CARE / HOMELESS Condition: STABLE Referrals: PCP,NO (PCP) STEPHANY NIXON Patient Instructions: Foot Contusion, [id number], Foot Sprain Additional Instructions: Ice and elevate foot for the next 24 hours 20 minutes on 3-4 times daily. Wear post op shoe for comfort. Follow up with PCP in next 2-3 days if pain not improving. DONELL GASPAR APRN Feb 16, 2021 11:37 GRISEL CHEN DO Feb 16, 2021 17:34
[2021-02-16] MEDS: IBUPROFEN 600 MG TABLET. PO ONE (11:45)
--- NOTE | 2021-02-16 12:36 | RAD ---
EXAM: 1. RIGHT ANKLE 3 VIEWS. 2. RIGHT FOOT 3 VIEWS. HISTORY: Fall, pain/swelling. COMPARISON: None. FINDINGS: No fractures are identified about the ankle. The alignment of the mortise is maintained. Joint spaces are maintained. No fractures are identified in the foot. Alignment is normal. Joint spaces are maintained. IMPRESSION: 1. No fracture. Electronically signed by: Elva Lux MD (02/16/2021 12:34 PM) [id number]
== END 2021-02-16 12:38 | disposition home or self-care (01) ==
LOC: ER 11:19
DX: S96.811A Strain of other specified muscles and tendons at ankle and foot level, right foot, initial encounter (principal); W01.0XXA Fall on same level from slipping, tripping and stumbling without subsequent striking against object, initial encounter; Y93.89 Activity, other specified; Y92.89 Other specified places as the place of occurrence of the external cause; Y99.8 Other external cause status
CPT/HCPCS: 73610; 73630; 99284

== ENCOUNTER 2021-05-31 19:01 | Emergency (ER) | payer MEDICAID ==
[~2021-05-31] VITALS: Ht 175.3 cm; Wt 72.9 kg
--- NOTE | 2021-05-31 19:19 | PHYS DOC ---
Past History Past Medical History: Other Additional Past Medical Histor: Muscle spasms Past Surgical History: No Surgical History Smoking: Non-smoker Alcohol Use: Occasionally Drug Use: None Adult General Chief Complaint Chief Complaint: CHEST PAIN HPI HPI Patient is a 25-year-old female, otherwise healthy presents with pleuritic chest pain, productive cough for the last couple of days. Denies any recent travel, traumas, does have suggested fevers at home but did not take her temperature, and body aches. Does not have any known ill contacts. States he is eating and drinking normally. States he is making urine and stool normally for her. Review of Systems Review of Systems Review of systems otherwise unremarkable except noted in HPI Allergies Allergies Allergies Coded Allergies Type Severity Reaction Last Updated Verified No Known Drug Allergies 02/16/21 No Physical Exam Physical Exam Constitutional: Well developed, well nourished, no acute distress, non-toxic appearance. [] HENT: Normocephalic, atraumatic, bilateral external ears normal, oropharynx moist, no oral exudates, nose normal. [] Eyes: conjunctiva normal, no discharge. [] Neck: Normal range of motion, no tenderness, supple, no stridor. [] Cardiovascular:Heart rate regular rhythm, no murmur [] Lungs & Thorax: Bilateral breath sounds clear to auscultation [] Abdomen: Bowel sounds normal, soft, no tenderness, no masses, no pulsatile masses. [] Skin: Warm, dry, no erythema, no rash. [] Back: No tenderness, no CVA tenderness. [] Extremities: No tenderness, no cyanosis, no clubbing, ROM intact, no edema. [] Neurologic: Alert and oriented X 3, normal motor function, normal sensory function, no focal deficits noted. [] Psychologic: Affect normal, judgement normal, mood normal. [] EKG EKG [] Radiology/Procedures Radiology/Procedures [] Heart Score C/O Chest Pain: No HEART Score for Chest Pain: HEART Score for Chest Pain Response (Comments) Value History Slighlty/Non-Suspicious 0 ECG Normal 0 Age < 45 0 Risk Factors 1 or 2 Risk Factors 1 Troponin < Normal Limit 0 Total 1 Risk Factors: Risk Factors: DM, Current or recent (<one month) smoker, HTN, HLP, family history of CAD, obesity. Risk Scores: Risk Factors: DM, Current or recent (<one month) smoker, HTN, HLP, family history of CAD, obesity. Course & Med Decision Making Course & Med Decision Making Patient is a 25-year-old female who presents with pleuritic chest pain, productive cough and body aches for couple days Vital signs notable for temperature of 99.5 but otherwise unremarkable. Physical exam noted above. Given medications for symptoms. COVID rapid positive. Chest x-ray nonconcerning. Discussed symptom management at home. Given COVID quarantine and education. Discussed CDC guidelines and CDC website. Advised to follow-up in the morning with primary care to update. Gave return galls to the ED. Patient grateful, verbalized understanding and agreed with plan of discharge. [] Dragon Disclaimer Dragon Disclaimer This electronic medical record was generated, in whole or in part, using a voice recognition dictation system. Departure Departure: Impression: Primary Impression: COVID Additional Impression: Viral syndrome Disposition: HOME / SELF CARE / HOMELESS Condition: GOOD Referrals: PCP,UNKNOWN (PCP) STEPHANY NIXON Patient Instructions: Viral Syndrome Additional Instructions: Thank you for coming into the emergency department tonight and allowing us to take care of you. Please read all the attached information carefully to go over things we discussed. Please begin a Tylenol, ibuprofen and Benadryl or [id number]-[id number] cough medicine regimen. Please call your primary care physician in the morning to update on ED visit and set up a follow-up. You have been diagnosed with COVID-19. It is an infection caused by a new type of coronavirus. COVID-19 will cause cold-like or mild flu symptoms in most. It can cause more severe symptoms like problems breathing in some. There is no treatment for COVID-19. The body will clear the infection over time. Self-care will help to ease discomfort. Steps to Take: Self-Care Rest as needed. Healthy habits may help you feel better. Steps include: Choose healthy foods including fruits and vegetables. Drink water throughout the day. Get plenty of sleep each night. If you smoke, try to quit. It may ease breathing. Avoid alcohol. Keep Others Healthy The virus can spread to others. Droplets are released every time you sneeze or cough. The droplets can get into the mouth, nose, or eyes of people near you and lead to infection. To lower the chances of spreading COVID-19 to others: Stay at home until your doctor has said it is safe to leave. If you tested positive this will mean staying isolated until both of the following are true: At least 7 days have passed since the start of illness. You are free of fever for at least 72 hours without the use of medicine. During this time: - Avoid public areas, events, or transportation. Do not return to work or school until your doctor has said it is safe to do so. - Call ahead if you need to go to a medical center. Let them know you may have COVID-19. It will help them guide you where to go. They may also ask you to wear a facemask when you come to the office. - If you call for emergency medical services, let them know you may have COVID- 19. While at home: - Try to avoid close contact with others. Stay about 6 feet away. - If possible, spend most of your time in a separate room from others. - Use a face mask if you will be in close contact with others such as sharing a room or vehicle. - Have someone wipe down common surfaces in the home. Use household private household worker every day on areas like doorknobs, counters, or sinks. - Cough or sneeze into a tissue. Throw the tissue away right after use. If a tissue is not available, cough or sneeze into your elbow. - Wash your hands often. Wash them after sneezing or coughing. Use soap and water and wash for at least 20 seconds. Alcohol based hand strainer cleaner can be used if soap and water is not available. - Do not prepare food for others. Avoid sharing personal items like forks, spoons, or toothbrushes. - Avoid close contact with pets while you are sick. There is no evidence of the virus passing to pets. This is a safety step until more is known about this virus. Isolation can be frustrating. Social interaction can help. Keep in touch with friends and family through phone and tech options. You can still interact with others in your home, just keep a safe distance of about 6 feet. Follow-up: Your doctors office will check in with you to see if there are any changes in your health. You may be asked to keep track of symptoms to share with them. They will also let you know when you are clear to be in public again. Problems to Look Out For: Contact your doctor if your recovery is not going as you expect. Get emergency care if you have problems such as: - Trouble breathing - Nonstop chest pain or pressure - Changes in awareness, confusion, or problems waking - Lips or face have bluish color - Worsening of symptoms If you think you have an emergency, call for emergency medical services right away. As taken from [facility] [place] Health Problem Qualifiers KRUNAL MONREAL MD May 31, 2021 19:19
[2021-05-31 19:27] VITALS: BP 101/61
[2021-05-31] MEDS ORDERED: guaiFENesin/CODEINE 100mg/10mg 5 ML LIQUID PO PRN (20:00)
[2021-05-31] MEDS ORDERED: IBUPROFEN 600 MG TABLET. PO ONE (20:00)
[2021-05-31 20:13] LABS: BASO % 1 % (0-3); EOS # 0.1 x10^3/uL (0.0-0.7); EOS % 2 % (0-3); HEMATOCRIT 44.4 % (36.0-47.0); HEMOGLOBIN 15.3 g/dL (12.0-15.5); LYMPH # 1.5 x10^3/uL (1.0-4.8); LYMPH % 27 % (24-48); MEAN CORPUSCULAR HEMOGLOBIN 30 pg (25-35); MEAN CORPUSCULAR HGB CONC 35 g/dL (31-37); MEAN CORPUSCULAR VOLUME 88 fL (79-100); MONO # 0.5 x10^3/uL (0.0-1.1); MONO % 8 % (0-9); NEUT # 3.4 x10^3uL (1.8-7.7); NEUT % 61 % (31-73); PLATELET COUNT 176 x10^3/uL (140-400); RED BLOOD COUNT 5.04 x10^6/uL (3.50-5.40); RED CELL DISTRIBUTION WIDTH 13.2 % (11.5-14.5); WHITE BLOOD COUNT 5.6 x10^3/uL (4.0-11.0)
[2021-05-31 20:19] LABS: BILIRUBIN,URINE NEG (NEG); CLARITY,URINE CLEAR; COLOR,URINE YELLOW; GLUCOSE,URINE NEG (NEG)
[2021-05-31 20:20] LABS: BACTERIA,URINE FEW /HPF (0-FEW); NITRITE,URINE NEG (NEG); RBC,URINE OCC /HPF (0-2); SQUAMOUS EPITHELIAL CELL,UR MOD /LPF; UROBILINOGEN,URINE 0.2 mg/dL (0.2 mg/dL)
[2021-05-31 20:32] LABS: CALCIUM 7.9 mg/dL (8.5-10.1); CREATININE 0.9 mg/dL (0.6-1.0); GFR 76.9; POTASSIUM 3.9 mmol/L (3.5-5.1)
[2021-05-31 20:36] LABS: ALBUMIN 3.9 g/dL (3.4-5.0); ALBUMIN/GLOBULIN RATIO 1.2 (1.0-1.7); TOTAL BILIRUBIN 0.4 mg/dL (0.2-1.0); TOTAL PROTEIN 7.2 g/dL (6.4-8.2)
[2021-05-31 20:40] LABS: INFLUENZA A PATIENT NEGATIVE (NEGATIVE); INFLUENZA B PATIENT NEGATIVE (NEGATIVE)
[2021-05-31] MEDS ORDERED: diphenhydrAMINE HCL 25 MG CAPSULE PO ONE ×2 (20:49→21:00)
--- NOTE | 2021-05-31 21:07 | RAD ---
EXAMINATION: Chest radiograph. VIEWS: Single AP view of the chest COMPARISON: 11/15/2020 INDICATION:25 years, Female, chest pain, shortness of breath. FINDINGS: Normal cardiomediastinal silhouette. No focal consolidation. No pleural effusion or pneumothorax. No acute osseous process. IMPRESSION: No acute cardiopulmonary process. Electronically signed by: Lincoln Nelson DO (05/31/2021 9:05 PM) [facility]
--- NOTE | 2021-06-01 06:41 | EKG ---
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
== END 2021-05-31 20:50 | disposition home or self-care (01) ==
LOC: ER 19:01
DX: U07.1 COVID-19 (principal); B34.9 Viral infection, unspecified
CPT/HCPCS: 36415; 71045; 80053; 81001; 81025; 84484; 85025; 87086; 93005; 99285; Q0163; 87428

== ENCOUNTER 2021-08-12 16:05 | Emergency (ER) | payer BC, MEDICAID ==
[~2021-08-12] VITALS: Ht 167.6 cm; Wt 70.8 kg
[2021-08-12] MEDS ORDERED: IV NORMAL SALINE 1,000ML 1,000 ML IV ONE (16:30)
[2021-08-12] MEDS ORDERED: ONDANSETRON PF 4 MG/2 ML VIAL. IVP ONE (16:30)
--- NOTE | 2021-08-12 16:38 | PHYS DOC ---
Past History Past Medical History: Other Additional Past Medical Histor: Muscle spasms (KRISTEN MEYERS APRN) Past Surgical History: No Surgical History (KRISTEN MEYERS APRN) Smoking: Non-smoker Alcohol Use: Occasionally Drug Use: None (KRISTEN MEYERS APRN) General Adult HPI: HPI: Patient is a 26-year-old female who presents to the emergency department with a 4-day history of nausea and vomiting. Patient is also reporting generalized abdominal cramping but states "I think it is from throwing up". Patient's is currently , she reports that she had 3+ tests at home. She reports that her last menstrual period was at the end of May. She has an OB appointment scheduled on Sunday with Yael who is a jr. java developer [facility]. Patient reports taking Tylenol at 730 this morning. She is . She denies diarrhea, fevers, urinary symptoms, vaginal bleeding, sick exposures, vaginal discharge, flank pain. (KRISTEN MEYERS APRN) Review of Systems: Review of Systems: Constitutional: See HPI GI: See HPI : See HPI Musculoskeletal: See HPI (KRISTEN MEYERS APRN) Current Medications: Current Meds: Current Medications Medications (Trade) Dose Ordered Sig/Piage Start Time Stop Time Status Last Admin Dose Admin Ondansetron HCl (Zofran) 4 mg 1X ONCE 08/12/21 16:30 08/12/21 16:31 DC Sodium Chloride 1,000 ml @ 1,000 mls/hr 1X ONCE 08/12/21 16:30 08/12/21 17:29 (KRISTEN MEYERS APRN) Allergies: Allergies: Allergies Coded Allergies Type Severity Reaction Last Updated Verified No Known Drug Allergies 02/16/21 No (KRISTEN MEYERS APRN) Physical Exam: PE: Constitutional: Well developed, well nourished, no acute distress, non-toxic appearance. [] HENT: Normocephalic, atraumatic, bilateral external ears normal, oropharynx moist, no oral exudates, nose normal. [] Eyes: PERRL, EOMI, conjunctiva normal, no discharge. [] Neck: Normal range of motion, no tenderness, supple, no stridor. [] Cardiovascular:Heart rate regular rhythm, no murmur [] Lungs & Thorax: Bilateral breath sounds clear to auscultation [] Abdomen: Bowel sounds normal, soft, lower abdominal tenderness with palpation, no abdominal rigidity or guarding,, no masses, no pulsatile masses. [] Skin: Warm, dry, no erythema, no rash. [] Back: No tenderness, no CVA tenderness. [] Extremities: No tenderness, no cyanosis, no clubbing, ROM intact, no edema. [] Neurologic: Alert and oriented X 3, normal motor function, normal sensory function, no focal deficits noted. [] Psychologic: Affect normal, judgement normal, mood normal. [] (KRISTEN MEYERS APRN) Current Patient Data: Labs: Laboratory Tests Test 08/12/21 16:40 08/12/21 16:45 08/12/21 17:15 08/12/21 17:32 Bedside Urine HCG, Qualitative hcg positive Urine Collection Type Clean catch Urine Color Yellow Urine Clarity Hazy Urine pH 6.0 Urine Specific Hamilton 1.025 Urine Protein Neg Urine Glucose (UA) Neg mg/dL Urine Ketones (Stick) Neg mg/dL Urine Blood Trace Urine Nitrite Neg Urine Bilirubin Neg Urine Urobilinogen Dipstick 1.0 mg/dL Urine Leukocyte Esterase Small Urine RBC 1-2 /HPF Urine WBC 5-10 /HPF Urine Squamous Epithelial Cells Many /LPF Urine Bacteria Mod /HPF Urine Yeast Present /HPF White Blood Count 7.0 x10^3/uL Red Blood Count 5.16 x10^6/uL Hemoglobin 15.3 g/dL Hematocrit 44.9 % Mean Corpuscular Volume 87 fL Mean Corpuscular Hemoglobin 30 pg Mean Corpuscular Hemoglobin Concent 34 g/dL Red Cell Distribution Width 13.8 % Platelet Count 187 x10^3/uL Neutrophils (%) (Auto) 71 % Lymphocytes (%) (Auto) 23 % Monocytes (%) (Auto) 4 % Eosinophils (%) (Auto) 2 % Basophils (%) (Auto) 0 % Neutrophils # (Auto) 5.0 x10^3uL Lymphocytes # (Auto) 1.6 x10^3/uL Monocytes # (Auto) 0.3 x10^3/uL Eosinophils # (Auto) 0.1 x10^3/uL Basophils # (Auto) 0.0 x10^3/uL Maternal Serum HCG Beta Subunit [id number] mIU/mL Sodium Level 132 mmol/L Potassium Level 3.5 mmol/L Chloride Level 103 mmol/L Carbon Dioxide Level 22 mmol/L Anion Gap 7 Blood Urea Nitrogen 6 mg/dL Creatinine 0.6 mg/dL Estimated GFR (Cockcroft-Gault) 121.8 BUN/Creatinine Ratio 10 Glucose Level 83 mg/dL Calcium Level 8.9 mg/dL Total Bilirubin 0.6 mg/dL Aspartate Amino Transf (AST/SGOT) 16 U/L Alanine Aminotransferase (ALT/SGPT) 23 U/L Alkaline Phosphatase 72 U/L Total Protein 7.0 g/dL Albumin 3.7 g/dL Albumin/Globulin Ratio 1.1 SARS-CoV-2 Antigen (Rapid) Negative Current Medications Medications (Trade) Dose Ordered Sig/Paige Route PRN Reason Start Time Stop Time Status Last Admin Dose Admin Sodium Chloride 1,000 ml @ 1,000 mls/hr 1X ONCE IV 08/12/21 16:30 08/12/21 17:29 DC 08/12/21 17:24 Ondansetron HCl (Zofran) 4 mg 1X ONCE IVP 08/12/21 16:30 08/12/21 16:31 DC 08/12/21 17:26 (KRISTEN MEYERS APRN) EKG: EKG: [] (KRISTEN MEYERS APRN) Radiology/Procedures: Radiology/Procedures: []PROCEDURE: PREG 1ST TRIMESTER EXAM: OBSTETRIC ULTRASOUND, <14 WEEKS. HISTORY: Abdominal pain in . COMPARISON: None. FINDINGS: Sonographic evaluation of the pelvis was performed transabdominally. The uterus is anteverted and measures 10.3 x 6.7 x 7.0 cm. There is a single intrauterine gestation measuring 8 weeks 1 day. heart rate is 175 bpm. A yolk sac is visualized. The gestational sac is regular. A small subchorionic collection along the lower uterine segment posteriorly measures 1.9 x 1.7 x 0.6 cm. The cervix is closed and measures 2.9 cm. The right ovary measures 2.5 x 1.7 x 1.5 cm. The left ovary measures 3.2 x 1.8 x 1.8 cm. There is normal Doppler flow bilaterally. There is no adnexal mass. There is no significant free fluid. IMPRESSION: 1. Small subchorionic collection along the lower uterine segment. Ongoing follow-up is recommended. 2. Single intrauterine gestation measuring 8 weeks 1 day. heart rate 175 bpm. Electronically signed by: Elva Lux MD (08/12/2021 5:09 PM) [id number] DICTATED AND SIGNED BY: SANDEEP LUX MD DATE: 08/12/211706 CC: KRISTEN MEYERS APRN; CLIFFORD ADAM (KRISTEN MEYERS APRN) Heart Score: C/O Chest Pain: N/A Risk Factors: Risk Factors: DM, Current or recent (<one month) smoker, HTN, HLP, family history of CAD, obesity. Risk Scores: Score 0 - 3: 2.5% MACE over next 6 weeks - Discharge Home Score 4 - 6: 20.3% MACE over next 6 weeks - Admit for Clinical Observation Score 7 - 10: 72.7% MACE over next 6 weeks - Early Invasive Strategies (KRISTEN MEYERS APRN) Course & Med Decision Making: Course & Med Decision Making Pertinent Labs and Imaging studies reviewed. (See chart for details) [] Patient resents to the emergency department with nausea, vomiting and generalized abdominal cramping in . Work-up in the ER consisted of blood work, urinalysis and ultrasound. Patient treated with IV fluids and nausea medication. Patient is able to tolerate oral intake in the emergency department following treatment. Patient's CBC is unremarkable, mild hyponatremia which was treated with IV fluids. Patient's urinalysis shows a infection which will be treated with an antibiotic. Patient's beta-hCG was [id number]. Patient's rapid Covid test was negative. Patient will be discharged home with Keflex for urinary tract infection, nausea medication and advised to take MiraLAX [id number] for her constipation. She was given a printout of her ultrasound report to take to her OB appointment on Sunday. I discussed with patient all findings and diagnostic testing as well as the need to follow-up with PCP for further evaluation and treatment or return to the ER if any new or worsening symptoms. Strict return precautions were also discussed at length. Patient voiced understanding and agreement with the plan. Patient is hemodynamically stable at the time of disposition. (KRISTEN MEYERS APRN) Dragon Disclaimer: Dragon Disclaimer: This electronic medical record was generated, in whole or in part, using a voice recognition dictation system. (KRISTEN MEYERS APRN) Departure Departure: Impression: Primary Impression: Nausea and vomiting during Additional Impression: Urinary tract infection Qualified Codes: N30.01 - Acute cystitis with hematuria Disposition: HOME / SELF CARE / HOMELESS Condition: GOOD Referrals: CLIFFORD ADAM (PCP) Patient Instructions: ABCs of , - Urinary Tract Infection Additional Instructions: You were seen in the emergency department for nausea, vomiting and abdominal pain in . You were noted to have a urinary tract infection which we treated with an antibiotic. Please start and finish the antibiotic completely. Increase your fluids and avoid bladder irritants like caffeine and sugary beverages. You show a intrauterine gestation measuring approximately 8 weeks. Please take the ultrasound report to your OB appointment on Sunday to follow-up regarding your subchorionic fluid. You are being discharged home with nausea medication you can take as needed. For your constipation please take MiraLAX [id number]. Please follow-up with your [employer] on Sunday. Return to the emergency department if you develop intractable nausea or vomiting, severe weakn ess, worsening of your abdominal pain, back pain, vaginal bleeding. Your betahcg level was [id number] Scripts Cephalexin (KEFLEX) 500 Mg Capsule 1 CAP PO TID for uti for 7 Days, #21 CAP 0 Refills Prov: KRISTEN MEYERS APRN 08/12/21 Ondansetron (ONDANSETRON ODT) 4 Mg Tab.rapdis 1 TAB PO PRN Q6-8HRS for nausea for 7 Days, #28 TAB 0 Refills Prov: KRISTEN MEYERS APRN 08/12/21 Attending Signature Attending Signature I have participated in the care of this patient and I have reviewed and agree with all pertinent clinical information above including history, exam, and recommendations. (CUATE MAYER MD) Dragon Disclaimer This chart was dictated in whole or in part using Voice Recognition software in a busy, high-work load, and often noisy Emergency Department environment. It may contain unintended and wholly unrecognized errors or omissions. (CUATE MAYER MD) KRISTEN MEYERS APRN Aug 12, 2021 16:38 CUATE MAYER MD Aug 13, 2021 23:59
--- NOTE | 2021-08-12 17:11 | RAD ---
EXAM: OBSTETRIC ULTRASOUND, <14 WEEKS. HISTORY: Abdominal pain in . COMPARISON: None. FINDINGS: Sonographic evaluation of the pelvis was performed transabdominally. The uterus is anteverted and measures 10.3 x 6.7 x 7.0 cm. There is a single intrauterine gestation m easuring 8 weeks 1 day. heart rate is 175 bpm. A yolk sac is visualized. The gestational sac is regular. A small subchorionic collection along the lower uterine segment posteriorly measures 1.9 x 1.7 x 0.6 cm. The cervix is closed and measures 2.9 cm. The right ovary measures 2.5 x 1.7 x 1.5 cm. The left ovary measures 3.2 x 1.8 x 1.8 cm. There is nor mal Doppler flow bilaterally. There is no adnexal mass. There is no significant free fluid. IMPRESSION: 1. Small subchorionic collection along the lower uterine segment. Ongoing follow-up is recommended. 2. Single intrauterine gestation measuring 8 weeks 1 day. heart rate 175 bpm. Electronically signed by: Elva Lux MD (08/12/2021 5:09 PM) VENITA
[2021-08-12 17:48] LABS: BASO % 0 % (0-3); EOS # 0.1 x10^3/uL (0.0-0.7); EOS % 2 % (0-3); HEMATOCRIT 44.9 % (36.0-47.0); HEMOGLOBIN 15.3 g/dL (12.0-15.5); LYMPH # 1.6 x10^3/uL (1.0-4.8); LYMPH % 23 % (24-48); MEAN CORPUSCULAR HEMOGLOBIN 30 pg (25-35); MEAN CORPUSCULAR HGB CONC 34 g/dL (31-37); MEAN CORPUSCULAR VOLUME 87 fL (79-100); MONO # 0.3 x10^3/uL (0.0-1.1); MONO % 4 % (0-9); NEUT % 71 % (31-73); PLATELET COUNT 187 x10^3/uL (140-400); RED BLOOD COUNT 5.16 x10^6/uL (3.50-5.40); RED CELL DISTRIBUTION WIDTH 13.8 % (11.5-14.5)
[2021-08-12 17:51] LABS: CALCIUM 8.9 mg/dL (8.5-10.1); CREATININE 0.6 mg/dL (0.6-1.0); GFR 121.8; POTASSIUM 3.5 mmol/L (3.5-5.1)
[2021-08-12 17:59] LABS: ALBUMIN 3.7 g/dL (3.4-5.0); ALBUMIN/GLOBULIN RATIO 1.1 (1.0-1.7); TOTAL BILIRUBIN 0.6 mg/dL (0.2-1.0)
[2021-08-12 18:04] LABS: BACTERIA,URINE MOD /HPF (0-FEW); CLARITY,URINE HAZY; COLOR,URINE YELLOW; GLUCOSE,URINE NEG (NEG); NITRITE,URINE NEG (NEG); SQUAMOUS EPITHELIAL CELL,UR MANY /LPF
[2021-08-12 18:05] LABS: YEAST,URINE PRESENT /HPF
[2021-08-12 18:20] VITALS: BP 102/61
[2021-08-12] MEDS ORDERED: ONDA4TAB12 PO (18:36)
[2021-08-12] MEDS ORDERED: CEPH500C PO (18:36)
== END 2021-08-12 18:51 | disposition home or self-care (01) ==
LOC: ER 16:05
DX: O23.41 Unspecified infection of urinary tract in pregnancy, first trimester (principal); O21.9 Vomiting of pregnancy, unspecified; R10.84 Generalized abdominal pain; Z3A.08 8 weeks gestation of pregnancy
CPT/HCPCS: 36415; 76801; 80053; 81001; 81025; 84702; 85025; 87086; 87426; 96361; 96374; 99284; J2405; J7030